=== PATIENT | female | born 1975 | race Hispanic/Latino ===

== ENCOUNTER 2020-01-25 16:14 | Emergency (ER) | payer SELFPAY ==
[2020-01-25] MEDS ORDERED: ASPIRIN 325 MG TAB PO ONE (16:33)
--- NOTE | 2020-01-25 17:30 | XRay Report ---
CHEST 1 VIEW INDICATION / CLINICAL INFORMATION: Chest Pain. FINDINGS: SUPPORT DEVICES: None. HEART / MEDIASTINUM: No significant abnormality. LUNGS / PLEURA: No significant pulmonary or pleural abnormality. No pneumothorax. ADDITIONAL FINDINGS: No significant additional findings. IMPRESSION: 1. No acute findings. Signer Name: Ty Fleming MD Signed: 01/25/2020 5:25 PM Workstation Name: [id number]
[2020-01-25 17:52] LABS: Blood Urea Nitrogen 8 mg/dL (7-17); Calcium 9.5 mg/dL (8.4-10.2); Hemolysis Index 49
[2020-01-25 17:54] LABS: Basophils % (Auto) 0.4 % (0.0-1.8); Eosinophils % (Auto) 0.1 % (0.0-4.3); Hematocrit 40.5 % (30.3-42.9); Hemoglobin 14.3 gm/dl (10.1-14.3); Lymphocytes # (Auto) 1.4 K/mm3 (1.2-5.4); Lymphocytes % (Auto) 12.8 % (13.4-35.0); Mean Corpuscular HGB Conc 35 % (30-34); Mean Corpuscular Volume 93 fl (79-97); Monocytes # (Auto) 0.7 K/mm3 (0.0-0.8); Monocytes % (Auto) 6.7 % (0.0-7.3); Platelet Count 295 K/mm3 (140-440); Red Blood Count 4.35 M/mm3 (3.65-5.03); Red Cell Distribution Width 12.9 % (13.2-15.2)
[2020-01-25 17:55] LABS: BUN/Creatinine Ratio 13
[2020-01-25] MEDS ORDERED: KETOROLAC 30 MG/1 ML INJ IV ONE (22:15)
[2020-01-25] MEDS ORDERED: levETIRAcetam 1000 MG/NS 0.75% 1,000 MG/100 ML BAG IV ONE (22:15)
--- NOTE | 2020-01-25 23:04 | Cat Scan Report ---
NONENHANCED CT SCAN OF THE HEAD: INDICATION / CLINICAL INFORMATION: 44 years Female; seizure evaluation. TECHNIQUE: Routine CT head without contrast. All CT scans at this location are performed using CT dos e reduction for ALARA by means of automated exposure control. COMPARISON: None. FINDINGS: BRAIN / INTRACRANIAL CONTENTS: No acute hemorrhage, mass effect, midline shift, hydrocephalus, or ac manzanita, large territorial infarct. No chronic infarct or focal atrophy. Normal brain volume and ventricu lar/sulcal size for age. No significant white matter abnormality. Temporal lobes are normal. No mesial sclerosis or space taking lesion in the frontal and temporal lob es CRANIOCERVICAL JUNCTION: No significant abnormality. ORBITS: No significant abnormality of visualized orbits. SINUSES / MASTOIDS: No significant abnormality of the visualized paranasal sinuses or mastoid air teodoro ls. ADDITIONAL FINDINGS: None. IMPRESSION: No focal parenchymal lesion in the brain Signer Name: Filemon Spivey MD Signed: 01/25/2020 11:00 PM Workstation Name: [id number]
--- NOTE | 2020-01-26 00:35 | Emergency Department Report ---
ED General Adult HPI - General Chief complaint: Chest Pain Stated complaint: CHEST PAIN Time Seen by Provider: 01/25/20 18:43 Source: patient Mode of arrival: Ambulatory Limitations: No Limitations - History of Present Illness Initial comments: Patient is a 44-year-old female who is presenting from [facility] being treated for psychosis for medical clearance. Patient stated that she had chest pain for the last 2 days. States is a heavy sensation on the chest. She denies cough cold congestion fevers chills or shortness of breath. Patient also states she is been having seizures for the past month. She has not seen a neurologist. 1 of these episodes was witnessed today and the patient was talking during the seizure. At least this episode appeared to be a pseudoseizure. Patient was here earlier today to be evaluated and she eloped briefly. She had to be brought back by police. Patient is back for medical clearance. - Related Data Previous Rx's Medication Instructions Recorded Last Taken Type levETIRAcetam [Keppra TAB] 500 mg PO BID #60 tablet 01/26/20 Unknown Rx Allergies Allergy/AdvReac Type Severity Reaction Status Date / Time No Known Allergies Allergy Verified 01/25/20 16:33 ED Review of Systems ROS: Stated complaint: CHEST PAIN Other details as noted in HPI Comment: All other systems reviewed and negative ED Past Medical Hx - Medications Home Medications: Home Medications Medication Instructions Recorded Confirmed Last Taken Type levETIRAcetam [Keppra TAB] 500 mg PO BID #60 tablet 01/26/20 Unknown Rx ED Physical Exam - General Limitations: No Limitations General appearance: alert, in no apparent distress - Head Head exam: Present: atraumatic, normocephalic - Eye Eye exam: Present: normal appearance, PERRL, EOMI - ENT ENT exam: Present: mucous membranes moist - Neck Neck exam: Present: normal inspection - Respiratory Respiratory exam: Present: normal lung sounds bilaterally. Absent: respiratory distress, wheezes, rales, rhonchi - Cardiovascular Cardiovascular Exam: Present: regular rate, normal rhythm. Absent: systolic murmur, diastolic murmur, rubs, gallop - GI/Abdominal GI/Abdominal exam: Present: soft, normal bowel sounds. Absent: distended, tenderness, guarding, rebound - Extremities Exam Extremities exam: Present: normal inspection - Back Exam Back exam: Present: normal inspection - Neurological Exam Neurological exam: Present: alert, oriented X3, CN II-XII intact, normal gait. Absent: motor sensory deficit - Psychiatric Psychiatric exam: Present: normal affect, normal mood - Skin Skin exam: Present: warm, dry, intact, normal color. Absent: rash ED Course Vital Signs 01/25/20 16:39 Temperature 98.2 F Pulse Rate 95 H Respiratory 18 Rate Blood Pressure 137/94 O2 Sat by Pulse 98 Oximetry ED Medical Decision Making - Lab Data Result diagrams: 01/25/20 17:15 01/25/20 17:15 Lab Results 01/25/20 01/25/20 01/25/20 Range/Units 17:15 17:15 22:50 WBC 11.0 (4.5-11.0) K/mm3 RBC 4.35 (3.65-5.03) M/mm3 Hgb 14.3 (10.1-14.3) gm/dl Hct 40.5 (30.3-42.9) % MCV 93 (79-97) fl MCH 33 H (28-32) pg MCHC 35 H (30-34) % RDW 12.9 L (13.2-15.2) % Plt Count 295 (140-440) K/mm3 Lymph % (Auto) 12.8 L (13.4-35.0) % Mason % (Auto) 6.7 (0.0-7.3) % Eos % (Auto) 0.1 (0.0-4.3) % Baso % (Auto) 0.4 (0.0-1.8) % Lymph # 1.4 (1.2-5.4) K/mm3 Mason # 0.7 (0.0-0.8) K/mm3 Eos # 0.0 (0.0-0.4) K/mm3 Baso # 0.0 (0.0-0.1) K/mm3 Seg Neutrophils % 80.0 H (40.0-70.0) % Seg Neutrophils # 8.8 H (1.8-7.7) K/mm3 Sodium 137 (137-145) mmol/L Potassium 4.1 (3.6-5.0) mmol/L Chloride 101.8 (98-107) mmol/L Carbon Dioxide 20 L (22-30) mmol/L Anion Gap 19 mmol/L BUN 8 (7-17) mg/dL Creatinine 0.6 (0.6-1.2) mg/dL Estimated GFR > 60 ml/min BUN/Creatinine Ratio 13 % Glucose 106 H (65-100) mg/dL Calcium 9.5 (8.4-10.2) mg/dL Troponin T < 0.010 < 0.010 (0.00-0.029) ng/mL - EKG Data -: EKG Interpreted by Ga EKG shows normal: sinus rhythm, axis, intervals, QRS complexes, ST-T waves Rate: normal - EKG Data Interpretation: normal EKG - Radiology Data CT of the head and chest x-ray are within normal limits - Medical Decision Making Patient has been medically cleared at this time. She has had 2- troponins has been ruled out for acute coronary syndrome. Patient was loaded with a dose of Keppra. At least 2 seizure that was witnessed was a pseudoseizure however cannot make a determination whether patient is having real seizures. Head CT is within normal limits. She will be continued on Keppra until she can see a neurologist. Critical care attestation.: If time is entered above; I have spent that time in minutes in the direct care of this critically ill patient, excluding procedure time. ED Disposition Clinical Impression: Atypical chest pain, Pseudoseizure Disposition: [id number]/TX-[id number] PSY HOSP/PSY UNIT Is pt being admited?: No Does the pt Need Aspirin: No Condition: Stable Instructions: Chest Pain (ED), Non-epileptic Seizures (ED) Additional Instructions: Patient has been medically cleared at this time. Her heart enzymes are within normal limits and acute NE has been ruled out. Chest x-ray is normal. Regarding the patient's "seizure" the patient is was talking during the seizure activity today and it appears as though she had a pseudoseizure. This occurred right before the patient eloped. I cannot at this time rule out that she has not had other true seizures for the past month. Patient was started on Keppra and will be given follow-up for outpatient neurology consultation. This consultation does not have to occur emergently. Referrals: NIC EATON MD [Referring] - 3-5 Days CAROL SINGH [Staff Physician] - 3-5 Days Time of Disposition: 00:45 HEART Score - HEART Score History: Slightly suspicious EKG: Normal Age: < 45 Risk factors: No known risk factors Troponin: Troponin T < 0.010 ng/mL (0.00-0.029) 01/25/20 22:50 Troponin: < normal limit HEART Score: 0
[2020-01-26 07:55] VITALS: BP 120/75
== END 2020-01-26 07:55 ==
LOC: ED 16:14
DX: R07.89 Other chest pain (principal)
CPT/HCPCS: 36415; 70450; 71045; 80048; 82962; 84484; 85025; 93005